=== PATIENT | female | born 1995 | race Caucasian/White ===

== ENCOUNTER 2022-06-12 21:43 | Emergency (ER) | payer MEDICAID ==
[~2022-06-12] VITALS: Ht 162.6 cm; Wt 94.1 kg
[2022-06-12 21:46] VITALS: BP 142/91
[2022-06-12] MEDS ORDERED: LIDOCAINE HCL/PF 1% 10 MG/ML 5ML VIAL INFIL ONE (22:15)
[2022-06-12] MEDS ORDERED: TETANUS, DIPHTHERIA, PERTUSSIS VAC/PF 0.5ML (>10YR OLD) IM ONE (22:15)
[2022-06-12] MEDS ORDERED: IBUPROFEN 400MG TABLET PO ONE (22:15)
[2022-06-12] MEDS ORDERED: HYDROCODONE/ACETAMINOPHEN 5/325MG TABLET PO STA (22:41)
[2022-06-12] MEDS ORDERED: KETOROLAC 30MG/ML VIAL IV STA (22:41)
[2022-06-12] MEDS ORDERED: CEFTRIAXONE 1 G PREMIX 50 ML IV ONE (22:45)
[2022-06-12] MEDS ORDERED: SODIUM CHLORIDE 0.9% 1,000 ML IV ONE (22:45)
[2022-06-13] MEDS ORDERED: IBUP-2028 MT (00:38)
[2022-06-13] MEDS ORDERED: CEPH500C2 MT (00:40)
[2022-06-13] MEDS ORDERED: HYDR-4001 MT (00:41)
== END 2022-06-13 01:22 | disposition home or self-care (01) ==
LOC: ER 21:43
DX: S68.122A Partial traumatic metacarpophalangeal amputation of right middle finger, initial encounter (principal); W23.0XXA Caught, crushed, jammed, or pinched between moving objects, initial encounter; Y93.89 Activity, other specified; Y92.89 Other specified places as the place of occurrence of the external cause; Y99.0 Civilian activity done for income or pay
CPT/HCPCS: 73130; 90471; 90715; 96365; 96375; 99284; J0696; J1885; J3490; J7030